=== PATIENT | male | born 1985 | race Hispanic/Latino ===

== ENCOUNTER 2023-04-09 12:12 | Emergency (ER) | payer SELFPAY | END 2023-04-09 14:05 | disposition home or self-care (01) | LOC: CSHERS 12:12 | DX: S62.306A Unspecified fracture of fifth metacarpal bone, right hand, initial encounter for closed fracture (principal); F17.210 Nicotine dependence, cigarettes, uncomplicated; W11.XXXA Fall on and from ladder, initial encounter | CPT/HCPCS: 29125 ==